=== PATIENT | female | born 1995 | race American Indian/Alaskan Native ===

== ENCOUNTER 2020-10-26 11:48 | Outpatient (CLI) | payer OTHER ==
[2020-10-26] MEDS ORDERED: PRENATAL TABLE1 EAC1 PO (12:59)
== END 2020-10-26 15:48 | disposition home or self-care (01) ==
LOC: OBS/DEL 11:48
PROVIDERS: ATTEND Obstetrics & Gynecology
DX: O47.1 False labor at or after 37 completed weeks of gestation (principal); Z3A.37 37 weeks gestation of pregnancy

== ENCOUNTER 2020-11-07 18:58 | Inpatient (IN) | payer OTHER ==
[~2020-11-07] VITALS: Ht 154.9 cm; Wt 62.1 kg
[~2020-11-07 18:58] MED LIST: PRENATAL TABLE1 EAC1 PO
== END 2020-11-10 17:39 | disposition home or self-care (01) | DRG 807 ==
LOC: OB/GYN 18:58 → LDR 18:58 → OB/GYN 11-08 17:18
PROVIDERS: ADMIT Obstetrics & Gynecology; ATTEND Obstetrics & Gynecology
PROC: 10E0XZZ Delivery of Products of Conception, External Approach (ICD-10-PCS; principal; 2020-11-08)
PROC: 10907ZC Drainage of Amniotic Fluid, Therapeutic from Products of Conception, Via Natural or Artificial Opening (ICD-10-PCS; 2020-11-08)
PROC: 4A1HXFZ Monitoring of Products of Conception, Cardiac Rhythm, External Approach (ICD-10-PCS; 2020-11-08)
DX: O14.95 Unspecified pre-eclampsia, complicating the puerperium (principal); O99.824 Streptococcus B carrier state complicating childbirth; O90.81 Anemia of the puerperium; D64.9 Anemia, unspecified; Z37.0 Single live birth; Z3A.39 39 weeks gestation of pregnancy; Z20.822 Contact with and (suspected) exposure to COVID-19